=== PATIENT | male | born 1955 | race Caucasian/White ===

== ENCOUNTER 2019-02-07 20:22 | Emergency (ER) | payer OTHER ==
[~2019-02-07] VITALS: Ht 182.9 cm; Wt 103.6 kg
[~2019-02-07 20:22] MED LIST: METOPROLOL TART25 M1 PO; NORCO1 TA2 PO
[2019-02-07 20:31] VITALS: Ht 182.9 cm; Wt 103.6 kg
[2019-02-07 21:54] VITALS: BP 150/81
== END 2019-02-07 21:54 | disposition home or self-care (01) ==
LOC: ED 20:22
DX: G44.209 Tension-type headache, unspecified, not intractable (principal); I10 Essential (primary) hypertension; E78.00 Pure hypercholesterolemia, unspecified; Z90.89 Acquired absence of other organs; Z90.49 Acquired absence of other specified parts of digestive tract